=== PATIENT | male | born 2000 | race African-American/Black ===

== ENCOUNTER 2020-08-11 00:52 | Emergency (ER) | payer OTHER ==
[~2020-08-11] VITALS: Ht 182.9 cm; Wt 75.0 kg
[2020-08-11 00:53] VITALS: BP 117/68
[2020-08-11] MEDS ORDERED: ACETAMINOPHEN 500 MG TAB PO ONE (01:30)
[2020-08-11 01:39] LABS: BASO % 0.7 % (0.0-1.0); EOS # 0.1 10^3/uL (0.0-0.5); HEMATOCRIT 42.3 % (42.0-52.0); HEMOGLOBIN 13.7 g/dl (13.5-17.5); LYMPH # 2.3 10^3/uL (1.5-5.0); LYMPH % 38.3 % (24.0-44.0); MEAN CORPUSCULAR HEMOGLOBIN 28.1 pg (27.0-33.0); MEAN CORPUSCULAR HGB CONC 32.4 g/dl (32.0-36.5); MEAN CORPUSCULAR VOLUME 86.9 fl (80.0-96.0); MONO # 0.3 10^3/uL (0.0-0.8); MONO % 5.3 % (0.0-5.0); NEUTROPHILS # 3.3 10^3/uL (1.5-8.5); NEUTROPHILS % 54.5 % (36.0-66.0); PLATELET COUNT, AUTOMATED 237 10^3/uL (150-450); RED BLOOD COUNT 4.87 10^6/uL (4.30-6.10); WHITE BLOOD COUNT 6.1 10^3/uL (4.0-10.0)
[2020-08-11 01:45] LABS: APPEARANCE, URINE CLEAR (CLEAR); BACTERIA, URINE AUTO NEGATIVE (NEGATIVE); BILIRUBIN, URINE AUTO NEGATIVE (NEGATIVE); BLOOD, URINE BLOOD NEGATIVE (NEGATIVE); COLOR, URINE YELLOW (YELLOW); GLUCOSE, URINE (UA) AUTO NEGATIVE (NEGATIVE); KETONE, URINE AUTO NEGATIVE (NEGATIVE); LEUKOCYTE ESTERASE, URINE AUTO NEGATIVE (NEGATIVE); MUCUS, URINE SMALL (NEGATIVE); NITRITE, URINE AUTO NEGATIVE (NEGATIVE); PROTEIN, URINE AUTO NEGATIVE (NEGATIVE); RBC, URINE AUTO 1 /HPF (0-3); SQUAMOUS EPITHELIAL CELL UR AU 0 /HPF (0-6); WBC, URINE AUTO 1 /HPF (0-3)
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
[2020-08-11 02:02] LABS: BLOOD UREA NITROGEN 10 MG/DL (7-18); CALCIUM LEVEL 9.3 MG/DL (8.5-10.1); CARBON DIOXIDE LEVEL 29 MEQ/L (21-32); CHLORIDE LEVEL 106 MEQ/L (98-107); CREATININE FOR GFR 1.19 MG/DL (0.70-1.30); GLUCOSE, FASTING 89 MG/DL (70-100); POTASSIUM SERUM 3.7 MEQ/L (3.5-5.1); SODIUM LEVEL 140 MEQ/L (136-145)
[2020-08-11] MEDS ORDERED: CYCL5TAB PO (02:09)
== END 2020-08-11 02:22 | disposition home or self-care (01) ==
LOC: M ED 00:52
DX: S39.012A Strain of muscle, fascia and tendon of lower back, initial encounter (principal); S16.1XXA Strain of muscle, fascia and tendon at neck level, initial encounter; R51.9 Headache, unspecified; V43.62XA Car passenger injured in collision with other type car in traffic accident, initial encounter; Y92.410 Unspecified street and highway as the place of occurrence of the external cause; F17.200 Nicotine dependence, unspecified, uncomplicated

== ENCOUNTER 2021-06-30 14:32 | Emergency (ER) | payer OTHER, SELFPAY ==
[~2021-06-30] VITALS: Ht 182.9 cm; Wt 67.7 kg
[2021-06-30 14:32] VITALS: BP 137/76
[~2021-06-30 14:32] MED LIST: CYCL5TAB PO
[2021-06-30 15:53] LABS: RSV AMPLIFICATION NEGATIVE (NEGATIVE)
== END 2021-06-30 16:12 | disposition home or self-care (01) ==
LOC: M ED 14:32
DX: R09.81 Nasal congestion (principal); R05.9 Cough, unspecified; F12.10 Cannabis abuse, uncomplicated

== ENCOUNTER 2023-10-21 03:50 | Emergency (ER) | payer BC, SELFPAY ==
[~2023-10-21] VITALS: Ht 182.9 cm; Wt 65.8 kg
[2023-10-21 06:05] VITALS: O2SAT 100
[2023-10-21] MEDS ORDERED: IBUPROFEN 600MG TAB PO ONE (06:10)
[2023-10-21 06:16] VITALS: BP 132/80
[2023-10-21 06:38] VITALS: TEMP 98
== END 2023-10-21 06:36 | disposition home or self-care (01) ==
LOC: M ED 03:50
DX: R59.9 Enlarged lymph nodes, unspecified (principal)

== ENCOUNTER → 2023-11-13 | Outpatient (CLI) | payer BC, OTHER | LOC: M RAD 11:43 | PROVIDERS: ATTEND Nurse Practitioner Family | DX: I89.0 Lymphedema, not elsewhere classified (principal) ==